=== PATIENT | male | born 1955 | race Caucasian/White ===

== ENCOUNTER 2025-06-19 02:41 | Emergency (ER) | payer MEDICARE ==
[2025-06-19 03:09] LABS: #Basophils 0.1 thou/uL (0.0-0.2); #Eosinophils 0.1 thou/uL (0.0-0.7); #Lymphocytes 1.9 thou/uL (1.20-3.40); #Monocytes 0.7 thou/uL (0.11-0.59); #Neutrophils 11.3 thou/uL (1.40-6.50); %Basophils 0.7 % (0.0-1.0); %Eosinophils 0.4 % (0.0-10.0); %Lymphocytes 13.4 % (21.0-51.0); %Monocytes 5.2 % (0.0-10.0); %Neutrophils 80.4 % (42.0-75.0); Hematocrit 43.3 % (42.0-52.0); Hemoglobin 14.2 g/dL (14.0-18.0); Mean Corpuscular Hemoglobin 29.8 pg (27.0-31.0); Mean Corpuscular Volume 90.8 fl (78.0-98.0); Platelet Count 226 10x3/uL (130-400); Red Blood Cell (RBC) Count 4.77 mill/uL (4.70-6.10); White Blood Cell (WBC) Count 14.1 10x3/uL (4.8-10.8)
[2025-06-19] MEDS ORDERED: Ondansetron PF 4 MG/2 ML Vial ONE (03:18)
[2025-06-19 03:23] LABS: ALT (SGPT) 25 U/L (Less than 45); AST (SGOT) 28 U/L (11-34); Albumin 4.4 g/dL (3.1-4.5); Alkaline Phosphatase 75 U/L (40-110); Anion Gap 16 mmol/L (10-20); BUN (Urea Nitrogen) 17 mg/dL (8.4-25.7); Bilirubin, Total 0.3 mg/dL (0.3-1.2); Calc. Creatinine Clearance 0 mL/min (70-130); Calcium 9.6 mg/dL (7.8-10.44); Carbon Dioxide 25 mmol/L (23-31); Chloride 104 mmol/L (98-107); Globulin 3.0 g/dL (2.4-3.5); Glucose 239 mg/dL (80-115); Potassium 4.7 mmol/L (3.5-5.1); Sodium 140 mmol/L (136-145)
[2025-06-19 03:24] LABS: Troponin I 0.023 ng/mL (< 0.028)
[2025-06-19] MEDS ORDERED: Famotidine/PF 20 mg/2ml Vial ONE (03:29)
[2025-06-19 05:51] LABS: CAUTI Indications for Culture Pelvic or flank pain; Glucose, Urine (Dipstick) 100 mg/dL (Negative); Leukocyte Negative (Negative); Protein, Urine (Dipstick) Negative (Neg-Trace); RBC/HPF 0-3 HPF (0-3); Specific Gravity, Urine 1.015 (1.005-1.030); WBC/HPF 0-3 HPF (0-3)
[2025-06-19 05:52] LABS: Bacteria/HPF Rare-Few HPF (None Seen); Urine Culture Reflex No No
[2025-06-19 05:55] LABS: Troponin I Less than 0.010 ng/mL (< 0.028)
[2025-06-19] MEDS ORDERED: Iopamidol 370 76% 100 ML VIAL ONE (09:00)
== END 2025-06-19 06:12 | disposition short-term general hospital (02) ==
LOC: MADERS 02:41
DX: K80.10 Calculus of gallbladder with chronic cholecystitis without obstruction (principal); E11.65 Type 2 diabetes mellitus with hyperglycemia; I73.9 Peripheral vascular disease, unspecified; K82.8 Other specified diseases of gallbladder; D72.829 Elevated white blood cell count, unspecified; I10 Essential (primary) hypertension; E11.9 Type 2 diabetes mellitus without complications; E78.5 Hyperlipidemia, unspecified; I25.10 Atherosclerotic heart disease of native coronary artery without angina pectoris; Z79.899 Other long term (current) drug therapy; Z79.82 Long term (current) use of aspirin
CPT/HCPCS: 36415; 71045; 71275; 74174; 80053; 81001; 83690; 84484; 85025; 93005; 94760; 96361; 96365; 96375; J2543; J7030; J7120; Q9967